=== PATIENT | female | born 1950 | race Asian ===

== ENCOUNTER 2018-06-11 19:43 | Inpatient (IN) | payer OTHER ==
[~2018-06-11] VITALS: Ht 160 cm; Wt 82.9 kg
[2018-06-11 21:05] LABS: Basophils # (auto) 0 uL; Eosinophils # (auto) 0 uL; Eosinophils % (auto) 0.2 % (0.0-7.0); Hematocrit 24.9 % (36.0-46.0); Monocytes # (auto) 0.3 uL; Nucleated Red Blood Cells % 0.1 %
[2018-06-11 21:07] LABS: Basophils % (auto) 0.1 % (0.0-2.0); Hemoglobin 7.4 g/dL (12.2-16.2); Lymphocytes # (auto) 1.7 uL; Lymphocytes % (auto) 24.8 % (10.0-50.0); Mean Corpuscular Hemoglobin 19.7 pg (28.0-32.0); Mean Corpuscular Hgb Conc. 29.8 g/dL (32.0-36.0); Mean Corpuscular Volume 66.1 fL (80.0-100.0); Monocytes % (auto) 4.5 % (0.0-12.0); Neutrophils # (auto) 4.9 uL; Neutrophils % (auto) 70.4 % (37.0-80.0); Platelet Count (auto) 124 10^3/uL (140-450); Red Blood Cells 3.76 10^6/uL (4.0-5.20)
[2018-06-11 21:08] LABS: Red Cell Distribution Width 27.4 % (11.8-14.3)
[2018-06-11 21:10] LABS: Alanine Aminotransferase 22 U/L (13-56); Albumin 2.5 g/dL (3.4-5.0); Anion Gap 11 (5-15); Aspartate Aminotransferase 24 U/L (15-37); BUN/Creatinine Ratio 55.4; Blood Urea Nitrogen 46 mg/dL (7-18); Calcium 7.3 mg/dL (8.5-10.1); Carbon Dioxide 23 mmol/L (21-32); Chloride 108 mmol/L (98-107); GFR African American 88 mL/min; GFR Non-African American 73 mL/min; Glucose 199 mg/dL (74-106); Magnesium 1.8 mg/dL (1.6-2.6); Potassium 4.6 mmol/L (3.5-5.1); Sodium 142 mmol/L (136-145)
[2018-06-11 21:13] LABS: Lactic Acid w/Reflex 4.8 mmol/L (0.4-2.0)
[2018-06-11 21:15] LABS: Alkaline Phosphatase 75 U/L (45-117); Bilirubin, Total 0.7 mg/dL (0.2-1.0); Total Protein 7.2 g/dL (6.4-8.2)
[2018-06-11 21:32] LABS: INR 1.14 (0.9-1.15); Partial Thromboplastin Time 22.4 sec (23.78-33.04); Prothrombin Time 12.1 sec (9.27-12.13)
[2018-06-11] MEDS ORDERED: SODIUM CHLORIDE 0.9% 1,000 ML IV ONE (22:00)
[2018-06-11] MEDS ORDERED: PHYTONADIONE (VIT K)10 MG/ML 1ML VIAL SUBCUT ONE (23:00)
[2018-06-11 23:19] LABS: Urine Bacteria MANY /hpf (None Seen); Urine Blood 2+ /uL (Negative); Urine Mucus FEW (None Seen); Urine Specific Gravity 1.021 (1.001-1.035); Urine WBC 4 /hpf (0 - 5)
[2018-06-11] MEDS ORDERED: ALBUMIN 25% 100 ML IV ONE (23:30)
[2018-06-11 23:54] VITALS: BP 98/55
[2018-06-12] MEDS ORDERED: ONDANSETRON HCL 4 MG/2 ML VIAL IV ONE
[2018-06-12] MEDS ORDERED: ONDANSETRON HCL 4 MG/2 ML VIAL ONE (00:01)
[2018-06-12 00:08] VITALS: BP 119/68
[2018-06-12] MEDS ORDERED: PANTOPRAZOLE 40 MG/10 ML VIAL IV ONE ×2 (00:30→02:24)
[2018-06-12] MEDS ORDERED: FAMOTIDINE (10MG/ML) 2ML VL IV ONE (00:30)
[2018-06-12 01:08] VITALS: BP 105/68
[2018-06-12 01:49] VITALS: BP 119/60
[2018-06-12 02:11] VITALS: BP 84/48
[2018-06-12] MEDS ORDERED: PANTOPRAZOLE 80 MG in SODIUM CHL 0.9% 60 ML IV ONE (02:15)
[2018-06-12] MEDS ORDERED: ONDANSETRON HCL 4 MG/2 ML VIAL IV PRN (02:45)
[2018-06-12] MEDS ORDERED: NITROGLYCERIN 0.4 MG SL TAB SL PRN (02:45)
[2018-06-12] MEDS ORDERED: MORPHINE SULF INJ 2 MG/ML SYRINGE 1ML IV PRN (02:45)
[2018-06-12] MEDS ORDERED: cefTRIAXone 1GM/10ml IVPUSH 10 ML IV ONE (02:45)
[2018-06-12] MEDS: SODIUM CHLORIDE 0.9% 1,000 ML IV SCH ×2 (02:59→15:43)
[2018-06-12 03:41] VITALS: BP 119/71
[2018-06-12] MEDS ORDERED: DEXTROSE (50%) 50ML SYRG IV PRN (04:00)
[2018-06-12] MEDS: InsuLIN REG 1unit/0.01ml Soln (100units/ml) SC SCH ×3 (05:45→17:30)
[2018-06-12] MEDS: ACCU-CHEK COMFORT CURVE STRIP VI SCH ×3 (05:45→17:30)
[2018-06-12 07:44] LABS: Hemoglobin 7.7 g/dL (12.2-16.2)
[2018-06-12 07:46] LABS: Hematocrit 24.4 % (36.0-46.0)
[2018-06-12] MEDS ORDERED: OCTREOTIDE ACETATE 100 MCG in SODIUM CHL 0.9% 50 ML IV ONE (10:45)
[2018-06-12] MEDS ORDERED: SODIUM CHLORIDE LOCK 10 ML ONE (11:38)
[2018-06-12] MEDS ORDERED: NALOXONE HCL 0.4 MG/ML VIAL ONE (11:38)
[2018-06-12] MEDS ORDERED: FLUMAZENIL 0.1 MG/ML INJ 10ML MDV IV ONE (11:38)
[2018-06-12] MEDS ORDERED: LIDOCAINE VISCOUS 2% 15ML UD ONE (11:39)
[2018-06-12] MEDS ORDERED: diphenhdrAMINE HCL 50 MG/1 ML VL ONE (11:39)
[2018-06-12] MEDS: fentaNYL CITRATE 100 MCG/2 ML VL ONE ×2 (11:42→11:48)
[2018-06-12] MEDS: MIDAZOLAM HCL 5 MG/ML-1ML VIAL ONE ×2 (11:42→11:48)
[2018-06-12] MEDS: OCTREOTIDE ACETATE 500 MCG in SODIUM CHL 0.9% 99 ML IV SCH ×2 (12:39→22:32)
[2018-06-12] MEDS: PANTOPRAZOLE 40 MG/10 ML VIAL IV SCH (22:27)
[2018-06-12 23:29] LABS: Hematocrit 22.4 % (36.0-46.0)
[2018-06-12 23:33] LABS: Hemoglobin 6.9 g/dL (12.2-16.2)
[2018-06-13] VITALS (17 sets, daily range): BP systolic 100–144; BP diastolic 53–78
[2018-06-13] MEDS: ACCU-CHEK COMFORT CURVE STRIP VI SCH ×3 (00:20→12:10)
[2018-06-13] MEDS: SODIUM CHLORIDE 0.9% 1,000 ML IV SCH ×2 (05:31→18:45)
[2018-06-13] MEDS: InsuLIN REG 1unit/0.01ml Soln (100units/ml) SC SCH ×3 (06:00→12:00)
[2018-06-13 06:25] LABS: Basophils # (auto) 0 uL; Eosinophils # (auto) 0.1 uL; Lymphocytes % (auto) 29.1 % (10.0-50.0); Monocytes # (auto) 0.2 uL
[2018-06-13 06:29] LABS: Basophils % (auto) 0.2 % (0.0-2.0); Hematocrit 20.6 % (36.0-46.0); Mean Corpuscular Hemoglobin 24.2 pg (28.0-32.0); Mean Corpuscular Hgb Conc. 32.8 g/dL (32.0-36.0); Monocytes % (auto) 7.3 % (0.0-12.0); Neutrophils % (auto) 59.4 % (37.0-80.0); Nucleated Red Blood Cells % 0.3 %; Platelet Count (auto) 58 10^3/uL (140-450); Red Blood Cells 2.78 10^6/uL (4.0-5.20); White Blood Cell 3.3 10^3/uL (4.4-10.8)
[2018-06-13] MEDS: OCTREOTIDE ACETATE 500 MCG in SODIUM CHL 0.9% 99 ML IV SCH ×2 (06:30→16:50)
[2018-06-13 06:32] LABS: Red Cell Distribution Width 30.6 % (11.8-14.3)
[2018-06-13 06:33] LABS: Hemoglobin 6.7 g/dL (12.2-16.2)
[2018-06-13 06:47] LABS: Albumin 2.6 g/dL (3.4-5.0); BUN/Creatinine Ratio 34.3; Bilirubin, Total 0.7 mg/dL (0.2-1.0); Calcium 7.8 mg/dL (8.5-10.1); Magnesium 2.1 mg/dL (1.6-2.6); Total Protein 6.3 g/dL (6.4-8.2)
[2018-06-13] MEDS ORDERED: ALBUMIN 5% 250 ML IV ONE (07:30)
[2018-06-13] MEDS: cefTRIAXone 1GM/10ml IVPUSH 10 ML IV SCH (09:49)
[2018-06-13] MEDS: PANTOPRAZOLE 40 MG/10 ML VIAL IV SCH ×2 (10:25→22:05)
[2018-06-13 19:40] LABS: Basophils # (auto) 0 uL; Eosinophils # (auto) 0.2 uL; Monocytes # (auto) 0.3 uL
[2018-06-13 19:41] LABS: Basophils % (auto) 0.3 % (0.0-2.0); Eosinophils % (auto) 3.7 % (0.0-7.0); Hematocrit 32.6 % (36.0-46.0); Hemoglobin 10.6 g/dL (12.2-16.2); Lymphocytes % (auto) 19.4 % (10.0-50.0); Mean Corpuscular Hemoglobin 25.3 pg (28.0-32.0); Mean Corpuscular Hgb Conc. 32.6 g/dL (32.0-36.0); Mean Corpuscular Volume 77.8 fL (80.0-100.0); Neutrophils # (auto) 3.7 uL; Neutrophils % (auto) 70.6 % (37.0-80.0); Nucleated Red Blood Cells % 0.1 %; Platelet Count (auto) 91 10^3/uL (140-450); Red Blood Cells 4.19 10^6/uL (4.0-5.20); White Blood Cell 5.2 10^3/uL (4.4-10.8)
[2018-06-13 19:53] LABS: Red Cell Distribution Width 27.1 % (11.8-14.3)
[2018-06-14] VITALS: BP 117/62
[2018-06-14] MEDS: OCTREOTIDE ACETATE 500 MCG in SODIUM CHL 0.9% 99 ML IV SCH ×3 (03:12→22:45)
[2018-06-14 04:00] VITALS: BP 100/52
[2018-06-14 05:41] LABS: Basophils # (auto) 0 uL; Basophils % (auto) 0.4 % (0.0-2.0); Eosinophils # (auto) 0.1 uL; Hemoglobin 8.7 g/dL (12.2-16.2); Monocytes # (auto) 0.3 uL; Neutrophils # (auto) 2.1 uL
[2018-06-14 05:43] LABS: Eosinophils % (auto) 4.2 % (0.0-7.0); Hematocrit 26.1 % (36.0-46.0); Lymphocytes # (auto) 0.9 uL; Lymphocytes % (auto) 25.6 % (10.0-50.0); Mean Corpuscular Hemoglobin 25.7 pg (28.0-32.0); Mean Corpuscular Hgb Conc. 33.2 g/dL (32.0-36.0); Mean Corpuscular Volume 77.3 fL (80.0-100.0); Monocytes % (auto) 8.3 % (0.0-12.0); Neutrophils % (auto) 61.5 % (37.0-80.0); Nucleated Red Blood Cells % 0.1 %; Platelet Count (auto) 68 10^3/uL (140-450); Red Blood Cells 3.37 10^6/uL (4.0-5.20); White Blood Cell 3.5 10^3/uL (4.4-10.8)
[2018-06-14 05:52] LABS: Red Cell Distribution Width 27.1 % (11.8-14.3)
[2018-06-14 05:56] LABS: BUN/Creatinine Ratio 17.2; Calcium 7.6 mg/dL (8.5-10.1); Potassium 3.3 mmol/L (3.5-5.1)
[2018-06-14] MEDS ORDERED: POTASSIUM EFFERVESENT TAB 25 MEQ GT ONE (07:15)
[2018-06-14 07:45] VITALS: BP 127/76
[2018-06-14] MEDS: PANTOPRAZOLE 40 MG/10 ML VIAL IV SCH ×2 (10:31→22:23)
[2018-06-14] MEDS: cefTRIAXone 1GM/10ml IVPUSH 10 ML IV SCH (10:31)
[2018-06-14 12:00] VITALS: BP 121/46
[2018-06-14] MEDS: SODIUM CHLORIDE 0.9% 1,000 ML IV SCH ×2 (14:31→22:24)
[2018-06-14 16:30] VITALS: BP 117/74
[2018-06-14] MEDS: PROPRANOLOL HCL 20 MG TAB PO SCH (22:22)
[2018-06-14 23:08] VITALS: BP 129/64
[2018-06-15 05:27] VITALS: BP 110/64
[2018-06-15 06:24] LABS: Basophils # (auto) 0 uL; Hemoglobin 9.3 g/dL (12.2-16.2); Lymphocytes # (auto) 0.9 uL; Neutrophils # (auto) 2.2 uL; White Blood Cell 3.5 10^3/uL (4.4-10.8)
[2018-06-15 06:27] LABS: Basophils % (auto) 0.3 % (0.0-2.0); Eosinophils # (auto) 0.2 uL; Eosinophils % (auto) 4.4 % (0.0-7.0); Hematocrit 28.6 % (36.0-46.0); Lymphocytes % (auto) 26.6 % (10.0-50.0); Mean Corpuscular Hemoglobin 24.8 pg (28.0-32.0); Mean Corpuscular Hgb Conc. 32.4 g/dL (32.0-36.0); Mean Corpuscular Volume 76.7 fL (80.0-100.0); Monocytes # (auto) 0.2 uL; Monocytes % (auto) 6.8 % (0.0-12.0); Neutrophils % (auto) 61.9 % (37.0-80.0); Nucleated Red Blood Cells % 0.2 %; Platelet Count (auto) 78 10^3/uL (140-450); Red Blood Cells 3.73 10^6/uL (4.0-5.20)
[2018-06-15 06:58] LABS: Red Cell Distribution Width 27.3 % (11.8-14.3)
[2018-06-15 08:32] VITALS: BP 110/66
[2018-06-15] MEDS: PROPRANOLOL HCL 20 MG TAB PO SCH ×2 (09:32→21:57)
[2018-06-15] MEDS: OCTREOTIDE ACETATE 500 MCG in SODIUM CHL 0.9% 99 ML IV SCH (09:32)
[2018-06-15] MEDS: cefTRIAXone 1GM/10ml IVPUSH 10 ML IV SCH (09:40)
[2018-06-15] MEDS: PANTOPRAZOLE 40 MG/10 ML VIAL IV SCH (09:40)
[2018-06-15] MEDS: SODIUM CHLORIDE 0.9% 1,000 ML IV SCH (12:06)
[2018-06-15 12:21] VITALS: BP 114/70
[2018-06-15 17:29] VITALS: BP 128/71
[2018-06-15 22:23] VITALS: BP 125/62
[2018-06-16 05:16] VITALS: BP 130/78
[2018-06-16 06:29] LABS: Basophils # (auto) 0 uL; Lymphocytes # (auto) 0.8 uL; Mean Corpuscular Hemoglobin 25.4 pg (28.0-32.0); Monocytes # (auto) 0.3 uL; Neutrophils # (auto) 2.1 uL; White Blood Cell 3.3 10^3/uL (4.4-10.8)
[2018-06-16 06:32] LABS: Basophils % (auto) 0.3 % (0.0-2.0); Eosinophils # (auto) 0.2 uL; Eosinophils % (auto) 4.8 % (0.0-7.0); Hematocrit 29.1 % (36.0-46.0); Hemoglobin 9.8 g/dL (12.2-16.2); Lymphocytes % (auto) 24.2 % (10.0-50.0); Mean Corpuscular Hgb Conc. 33.6 g/dL (32.0-36.0); Mean Corpuscular Volume 75.6 fL (80.0-100.0); Monocytes % (auto) 8.1 % (0.0-12.0); Neutrophils % (auto) 62.6 % (37.0-80.0); Nucleated Red Blood Cells % 0.2 %; Platelet Count (auto) 83 10^3/uL (140-450); Red Blood Cells 3.85 10^6/uL (4.0-5.20)
[2018-06-16 06:40] LABS: Red Cell Distribution Width 27.6 % (11.8-14.3)
[2018-06-16 08:35] VITALS: BP 137/71
[2018-06-16] MEDS ORDERED: POTASSIUM CHL 20 Meq TABLET PO ONE (09:30)
[2018-06-16] MEDS: cefTRIAXone 1GM/10ml IVPUSH 10 ML IV SCH (09:34)
[2018-06-16] MEDS: PROPRANOLOL HCL 20 MG TAB PO SCH (09:36)
[2018-06-16] MEDS ORDERED: PANTOPRAZOLE 40 MG TAB PO SCH (10:00)
[2018-06-16] MEDS ORDERED: PRO20T PO (10:22)
[2018-06-16] MEDS ORDERED: PANT40TA2 PO (10:22)
[2018-06-16 12:54] VITALS: BP 109/66
[2018-06-16 13:23] VITALS: BP 109/66
== END 2018-06-16 15:30 | disposition home or self-care (01) | DRG 369 ==
LOC: ER 19:43 → TELE 19:44 → DOU IN ICU 06-13 18:04 → TELE-CENTR 06-14 18:27
PROVIDERS: ADMIT Nurse Practitioner; ATTEND Internal Medicine
PROC: 30233R1 Transfusion of Nonautologous Platelets into Peripheral Vein, Percutaneous Approach (ICD-10-PCS; 2018-06-12)
PROC: 0W3P8ZZ Control Bleeding in Gastrointestinal Tract, Via Natural or Artificial Opening Endoscopic (ICD-10-PCS; principal; 2018-06-12 11:38)
PROC: 30233N1 Transfusion of Nonautologous Red Blood Cells into Peripheral Vein, Percutaneous Approach (ICD-10-PCS; 2018-06-13)
DX: I85.01 Esophageal varices with bleeding (principal); N39.0 Urinary tract infection, site not specified; E11.9 Type 2 diabetes mellitus without complications; E86.0 Dehydration; D69.6 Thrombocytopenia, unspecified; E87.6 Hypokalemia; B19.20 Unspecified viral hepatitis C without hepatic coma; J98.4 Other disorders of lung; I11.9 Hypertensive heart disease without heart failure; D64.9 Anemia, unspecified; K74.60 Unspecified cirrhosis of liver; Z76.82 Awaiting organ transplant status; Z79.4 Long term (current) use of insulin; Z90.49 Acquired absence of other specified parts of digestive tract
CPT/HCPCS: 36415; 36430; 43255; 71045; 74176; 80048; 80053; 80061; 81001; 82270; 82962; 83036; 83605; 83735; 83880; 84132; 84484; 85014; 85018; 85025; 85045; 85610; 85730; 86850; 86900; 86901; 86920; 87040; 87081; 87086; 93005; 94761; 96365; 96367; 96372; 96375; A6257; C9113; J0696; J2250; J2405; J3430; J3490; P9047

== ENCOUNTER 2018-06-22 11:39 | Inpatient (IN) | payer OTHER ==
[2018-06-22] VITALS (17 sets, daily range): BP systolic 101–128; BP diastolic 56–74
[~2018-06-22] VITALS: Ht 165.1 cm; Wt 77.5 kg
[~2018-06-22 11:39] MED LIST: PANT40TA2 PO; PRO20T PO
[2018-06-22] MEDS ORDERED: SODIUM CHLORIDE 0.9% 1,000 ML IV ONE (12:12)
[2018-06-22 12:45] LABS: Basophils # (auto) 0 uL; Eosinophils # (auto) 0 uL; Mean Corpuscular Hemoglobin 24.3 pg (28.0-32.0); Mean Corpuscular Volume 75.6 fL (80.0-100.0); Neutrophils # (auto) 5.5 uL; Nucleated Red Blood Cells % 0.1 %
[2018-06-22 12:47] LABS: Basophils % (auto) 0.4 % (0.0-2.0); Eosinophils % (auto) 0.4 % (0.0-7.0); Hematocrit 21.8 % (36.0-46.0); Lymphocytes # (auto) 1.2 uL; Mean Corpuscular Hgb Conc. 32.2 g/dL (32.0-36.0); Monocytes # (auto) 0.4 uL; Monocytes % (auto) 6.1 % (0.0-12.0); Neutrophils % (auto) 76.1 % (37.0-80.0); Platelet Count (auto) 134 10^3/uL (140-450); Red Blood Cells 2.89 10^6/uL (4.0-5.20); White Blood Cell 7.2 10^3/uL (4.4-10.8)
[2018-06-22 12:49] LABS: Red Cell Distribution Width 26.5 % (11.8-14.3)
[2018-06-22 12:56] LABS: Alanine Aminotransferase 16 U/L (13-56); Albumin 2.3 g/dL (3.4-5.0); Anion Gap 11 (5-15); Aspartate Aminotransferase 18 U/L (15-37); BUN/Creatinine Ratio 53.6; Blood Urea Nitrogen 37 mg/dL (7-18); Calcium 7.4 mg/dL (8.5-10.1); Carbon Dioxide 23 mmol/L (21-32); Chloride 109 mmol/L (98-107); GFR African American 109 mL/min; GFR Non-African American 90 mL/min; Glucose 167 mg/dL (74-106); Potassium 3.8 mmol/L (3.5-5.1); Sodium 143 mmol/L (136-145)
[2018-06-22 13:00] LABS: Alkaline Phosphatase 64 U/L (45-117); Bilirubin, Total 0.6 mg/dL (0.2-1.0); Total Protein 6.4 g/dL (6.4-8.2)
[2018-06-22 13:03] LABS: INR 1.12 (0.9-1.15); Partial Thromboplastin Time 23.3 sec (23.78-33.04); Prothrombin Time 11.9 sec (9.27-12.13)
[2018-06-22] MEDS ORDERED: PANTOPRAZOLE 80 MG in SODIUM CHL 0.9% 60 ML IV ONE (13:45)
[2018-06-22] MEDS ORDERED: OCTREOTIDE ACETATE 500 MCG in SODIUM CHL 0.9% 99 ML IV SCH (13:45)
[2018-06-22] MEDS ORDERED: DEXTROSE (50%) 50ML SYRG IV PRN (15:30)
[2018-06-22] MEDS ORDERED: HYDROcodone-ACET 5/325MG TAB PO PRN (15:30)
[2018-06-22] MEDS ORDERED: TEMAZEPAM 15 MG CAP PO PRN (15:30)
[2018-06-22] MEDS ORDERED: ONDANSETRON HCL 4 MG/2 ML VIAL IV PRN (15:30)
[2018-06-22] MEDS ORDERED: MORPHINE SULFATE 4 MG/ML SYR/VIAL IV PRN (15:30)
[2018-06-22] MEDS ORDERED: ACETAMINOPHEN 325 MG TAB PO PRN (15:30)
[2018-06-22] MEDS ORDERED: MORPHINE SULF INJ 2 MG/ML SYRINGE 1ML IV PRN (15:30)
[2018-06-22] MEDS ORDERED: FAMOTIDINE (10MG/ML) 2ML VL IV ONE (15:30)
[2018-06-22] MEDS ORDERED: NITROGLYCERIN 0.4 MG SL TAB SL PRN (15:30)
[2018-06-22] MEDS ORDERED: DOCUSATE SOD 100 MG CAP PO PRN (15:30)
[2018-06-22] MEDS: OCTREOTIDE ACETATE 500 MCG in SODIUM CHL 0.9% 99 ML IV SCH (15:43)
[2018-06-22] MEDS: SODIUM CHLORIDE 0.9% 1,000 ML IV SCH (17:01)
[2018-06-22] MEDS: InsuLIN REG 1unit/0.01ml Soln (100units/ml) SC SCH ×2 (17:33→22:00)
[2018-06-22] MEDS: ACCU-CHEK COMFORT CURVE STRIP VI SCH ×2 (17:33→22:33)
[2018-06-22 17:48] LABS: Urine Bacteria NONE SEEN /hpf (None Seen); Urine Blood Negative /uL (Negative); Urine Budding Yeast FEW /hpf (None Seen); Urine WBC 13 /hpf (0 - 5)
[2018-06-22] MEDS: Glucerna Carbsteady SHAKE Vanilla 8oz PO SCH ×2 (18:28→22:00)
[2018-06-22] MEDS ORDERED: FAMOTIDINE 20 MG TAB PO SCH (22:00)
[2018-06-22] MEDS: PROPRANOLOL HCL 20 MG TAB PO SCH (22:33)
[2018-06-23] VITALS (12 sets, daily range): BP systolic 100–126; BP diastolic 56–71
[2018-06-23] MEDS ORDERED: OCTREOTIDE ACETATE 500 MCG/ML VL ONE (00:18)
[2018-06-23] MEDS: OCTREOTIDE ACETATE 500 MCG in SODIUM CHL 0.9% 99 ML IV SCH ×4 (00:34→23:00)
[2018-06-23] MEDS: SODIUM CHLORIDE 0.9% 1,000 ML IV SCH ×2 (01:18→10:31)
[2018-06-23 01:34] LABS: Hemoglobin 7.9 g/dL (12.2-16.2)
[2018-06-23 01:36] LABS: Hematocrit 24.2 % (36.0-46.0)
[2018-06-23 05:46] LABS: Basophils # (auto) 0 uL; Eosinophils # (auto) 0.1 uL; Hemoglobin 7.7 g/dL (12.2-16.2); Lymphocytes # (auto) 1.6 uL; Mean Corpuscular Hemoglobin 26.8 pg (28.0-32.0); Mean Corpuscular Hgb Conc. 33.4 g/dL (32.0-36.0); Monocytes # (auto) 0.4 uL; Neutrophils # (auto) 3.7 uL; Red Blood Cells 2.86 10^6/uL (4.0-5.20); White Blood Cell 5.8 10^3/uL (4.4-10.8)
[2018-06-23 05:49] LABS: Basophils % (auto) 0.5 % (0.0-2.0); Eosinophils % (auto) 2.1 % (0.0-7.0); Lymphocytes % (auto) 27.4 % (10.0-50.0); Mean Corpuscular Volume 80.5 fL (80.0-100.0); Monocytes % (auto) 6.6 % (0.0-12.0); Neutrophils % (auto) 63.4 % (37.0-80.0); Nucleated Red Blood Cells % 0.2 %; Platelet Count (auto) 87 10^3/uL (140-450)
[2018-06-23 05:53] LABS: Red Cell Distribution Width 22.6 % (11.8-14.3)
[2018-06-23] MEDS: Glucerna Carbsteady SHAKE Vanilla 8oz PO SCH (06:00)
[2018-06-23 06:04] LABS: Albumin 2.1 g/dL (3.4-5.0); Potassium 3.6 mmol/L (3.5-5.1)
[2018-06-23 06:06] LABS: Bilirubin, Total 1.1 mg/dL (0.2-1.0); Total Protein 5.6 g/dL (6.4-8.2)
[2018-06-23] MEDS: InsuLIN REG 1unit/0.01ml Soln (100units/ml) SC SCH ×4 (07:00→21:46)
[2018-06-23] MEDS: ACCU-CHEK COMFORT CURVE STRIP VI SCH ×4 (07:06→21:39)
[2018-06-23] MEDS: PROPRANOLOL HCL 20 MG TAB PO SCH ×2 (10:00→21:38)
[2018-06-23] MEDS ORDERED: FAMOTIDINE (10MG/ML) 2ML VL IV SCH (10:00)
[2018-06-23] MEDS: MULTIPLE VITAMIN TAB PO SCH (10:00)
[2018-06-23] MEDS ORDERED: PANTOPRAZOLE 40 MG/10 ML VIAL IV SCH (10:00)
[2018-06-23] MEDS ORDERED: LIDOCAINE VISCOUS 2% 15ML UD ONE (12:00)
[2018-06-23] MEDS ORDERED: SODIUM CHLORIDE LOCK 10 ML ONE (12:00)
[2018-06-23] MEDS ORDERED: diphenhdrAMINE HCL 50 MG/1 ML VL ONE (12:00)
[2018-06-23] MEDS: fentaNYL CITRATE 100 MCG/2 ML VL ONE ×2 (12:03→12:08)
[2018-06-23] MEDS: MIDAZOLAM HCL 5 MG/ML-1ML VIAL ONE ×2 (12:03→12:08)
[2018-06-23 14:06] LABS: Hematocrit 22.5 % (36.0-46.0); Hemoglobin 7.6 g/dL (12.2-16.2)
[2018-06-23] MEDS: POTASSIUM CHLORIDE 20 MEQ in D5W 5% 1,000 ML IV SCH (14:09)
[2018-06-23] MEDS: PANTOPRAZOLE 40 MG/10 ML VIAL IV SCH (21:38)
[2018-06-23 22:05] LABS: Hematocrit 26.6 % (36.0-46.0); Hemoglobin 8.9 g/dL (12.2-16.2)
[2018-06-24] VITALS (8 sets, daily range): BP systolic 108–134; BP diastolic 62–68
[2018-06-24] MEDS: POTASSIUM CHLORIDE 20 MEQ in D5W 5% 1,000 ML IV SCH (04:00)
[2018-06-24 05:30] LABS: Basophils # (auto) 0 uL; Hemoglobin 8.4 g/dL (12.2-16.2); Lymphocytes # (auto) 1.2 uL; Monocytes # (auto) 0.4 uL; Nucleated Red Blood Cells % 0.1 %; White Blood Cell 6.2 10^3/uL (4.4-10.8)
[2018-06-24 05:34] LABS: Basophils % (auto) 0.4 % (0.0-2.0); Eosinophils # (auto) 0.2 uL; Eosinophils % (auto) 3.7 % (0.0-7.0); Hematocrit 24.9 % (36.0-46.0); Lymphocytes % (auto) 18.7 % (10.0-50.0); Mean Corpuscular Hgb Conc. 33.9 g/dL (32.0-36.0); Mean Corpuscular Volume 79.6 fL (80.0-100.0); Neutrophils # (auto) 4.4 uL; Neutrophils % (auto) 70.2 % (37.0-80.0); Platelet Count (auto) 74 10^3/uL (140-450); Red Blood Cells 3.13 10^6/uL (4.0-5.20)
[2018-06-24 05:39] LABS: Red Cell Distribution Width 20.9 % (11.8-14.3)
[2018-06-24 05:43] LABS: INR 1.08 (0.9-1.15); Prothrombin Time 11.5 sec (9.27-12.13)
[2018-06-24 05:48] LABS: Albumin 2.3 g/dL (3.4-5.0); BUN/Creatinine Ratio 18.5; Potassium 3.4 mmol/L (3.5-5.1)
[2018-06-24 05:50] LABS: Bilirubin, Total 1.3 mg/dL (0.2-1.0)
[2018-06-24] MEDS: ACCU-CHEK COMFORT CURVE STRIP VI SCH (06:23)
[2018-06-24] MEDS: InsuLIN REG 1unit/0.01ml Soln (100units/ml) SC SCH (06:24)
[2018-06-24] MEDS ORDERED: POTASSIUM CHL 20 Meq TABLET PO ONE ×2 (09:15→15:00)
[2018-06-24] MEDS: PANTOPRAZOLE 40 MG/10 ML VIAL IV SCH (09:36)
[2018-06-24] MEDS: MULTIPLE VITAMIN TAB PO SCH (09:37)
[2018-06-24] MEDS: PROPRANOLOL HCL 20 MG TAB PO SCH ×2 (09:37→21:59)
[2018-06-24] MEDS ORDERED: FUROSEMIDE 20 MG/2 ML VIAL IV ONE (11:00)
[2018-06-24] MEDS ORDERED: ALBUMIN 25% 100 ML IV ONE (11:00)
[2018-06-24] MEDS ORDERED: guaiFENesin-DM 100/10mg/5ml SYR PO PRN (11:15)
[2018-06-24] MEDS: PANTOPRAZOLE 40 MG TAB PO SCH (21:59)
[2018-06-25 05:01] VITALS: BP 110/45
[2018-06-25 06:12] LABS: Basophils # (auto) 0 uL; Eosinophils # (auto) 0.2 uL; Lymphocytes # (auto) 0.9 uL; Monocytes # (auto) 0.4 uL; Neutrophils # (auto) 4.1 uL; Platelet Count (auto) 69 10^3/uL (140-450)
[2018-06-25 06:15] LABS: Basophils % (auto) 0.3 % (0.0-2.0); Eosinophils % (auto) 2.8 % (0.0-7.0); Hematocrit 24.6 % (36.0-46.0); Hemoglobin 8.3 g/dL (12.2-16.2); Lymphocytes % (auto) 16.5 % (10.0-50.0); Mean Corpuscular Hemoglobin 26.7 pg (28.0-32.0); Mean Corpuscular Hgb Conc. 33.8 g/dL (32.0-36.0); Mean Corpuscular Volume 78.9 fL (80.0-100.0); Monocytes % (auto) 7.9 % (0.0-12.0); Neutrophils % (auto) 72.5 % (37.0-80.0); Nucleated Red Blood Cells % 0.1 %; Red Blood Cells 3.12 10^6/uL (4.0-5.20); White Blood Cell 5.7 10^3/uL (4.4-10.8)
[2018-06-25 06:24] LABS: Red Cell Distribution Width 21.5 % (11.8-14.3)
[2018-06-25 06:56] LABS: Albumin 2.7 g/dL (3.4-5.0); BUN/Creatinine Ratio 8.6; Calcium 7.4 mg/dL (8.5-10.1)
[2018-06-25 06:59] LABS: Bilirubin, Total 1.3 mg/dL (0.2-1.0); Total Protein 6.5 g/dL (6.4-8.2)
[2018-06-25 08:49] VITALS: BP 115/55
[2018-06-25] MEDS ORDERED: POTASSIUM CHL 20 Meq TABLET PO ONE (09:15)
[2018-06-25] MEDS ORDERED: PRO20T PO (09:39)
[2018-06-25] MEDS ORDERED: POTA20TA53 PO (09:39)
[2018-06-25] MEDS ORDERED: FURO20TA3 PO (09:39)
[2018-06-25] MEDS ORDERED: FER325T PO (09:43)
[2018-06-25 10:28] VITALS: BP 133/66
[2018-06-25] MEDS: PANTOPRAZOLE 40 MG TAB PO SCH (10:57)
[2018-06-25] MEDS: MULTIPLE VITAMIN TAB PO SCH (10:57)
[2018-06-25] MEDS: PROPRANOLOL HCL 20 MG TAB PO SCH (10:57)
[2018-06-25 12:43] VITALS: BP 102/52
== END 2018-06-25 13:20 | disposition home or self-care (01) | DRG 432 ==
LOC: ER 11:40 → OVERFLOW 11:41 → DOU IN ICU 22:21 → CENTRAL 06-24 15:55
PROVIDERS: ADMIT Internal Medicine; ATTEND Internal Medicine
PROC: 30233N1 Transfusion of Nonautologous Red Blood Cells into Peripheral Vein, Percutaneous Approach (ICD-10-PCS; principal; 2018-06-22)
PROC: 06L38CZ Occlusion of Esophageal Vein with Extraluminal Device, Via Natural or Artificial Opening Endoscopic (ICD-10-PCS; 2018-06-23)
PROC: 02HV33Z Insertion of Infusion Device into Superior Vena Cava, Percutaneous Approach (ICD-10-PCS; 2018-06-23)
DX: K74.60 Unspecified cirrhosis of liver (principal); E43 Unspecified severe protein-calorie malnutrition; I85.11 Secondary esophageal varices with bleeding; D62 Acute posthemorrhagic anemia; E87.0 Hyperosmolality and hypernatremia; K22.10 Ulcer of esophagus without bleeding; K76.6 Portal hypertension; D69.59 Other secondary thrombocytopenia; E11.21 Type 2 diabetes mellitus with diabetic nephropathy; E11.22 Type 2 diabetes mellitus with diabetic chronic kidney disease; E83.51 Hypocalcemia; I13.10 Hypertensive heart and chronic kidney disease without heart failure, with stage 1 through stage 4 chronic kidney disease, or unspecified chronic kidney disease; K31.89 Other diseases of stomach and duodenum; N18.2 Chronic kidney disease, stage 2 (mild); B19.20 Unspecified viral hepatitis C without hepatic coma; R16.1 Splenomegaly, not elsewhere classified; E87.6 Hypokalemia; Z90.49 Acquired absence of other specified parts of digestive tract; Z68.28 Body mass index [BMI] 28.0-28.9, adult
CPT/HCPCS: 36415; 36430; 36556; 43244; 71045; 76705; 80053; 81001; 82962; 83036; 83880; 84443; 84484; 85014; 85018; 85025; 85610; 85730; 86850; 86900; 86901; 86920; 87081; 93005; 96361; 96365; 96375; 99291; A6257; C9113; J2250; J3490; P9047